=== PATIENT | female | born 1945 | race Caucasian/White ===

== ENCOUNTER → 2018-01-16 | Outpatient (CLI) | payer MEDICARE, BC ==
--- NOTE | 2018-01-16 13:53 | Diagnostic Imaging Report ---
EXAM: XR CHEST 2 VIEWS DATE: 01/16/2018 12:38 PM INDICATION: Cough COMPARISON: None FINDINGS: Lines and Tubes: None Heart and Mediastinum: No acute cardiomediastinal findings. Lungs and Pleura: Ill-defined basilar opacities, most notably on the left. Bones and Soft Tissues: No acute findings. IMPRESSION: 1. Left basilar atelectasis versus developing pneumonia. Signed by: Dr. Matt Bonner MD on 01/16/2018 1:49 PM
== END ==
LOC: RAD 12:26
PROVIDERS: ATTEND Family Medicine
DX: R05 Cough (principal)
CPT/HCPCS: 71046

== ENCOUNTER → 2018-02-19 | Outpatient (CLI) | payer MEDICARE, BC ==
--- NOTE | 2018-02-19 12:39 | Diagnostic Imaging Report ---
EXAMINATION: PA and lateral views of the chest. COMPARISON: 01/16/2018 CLINICAL HISTORY: Resolving bronchitis DISCUSSION: Lungs are well-inflated. Aeration of the left lung base has improved compared to 01/16/2018. No consolidation, pleural effusion, or pneumothorax. Stable cardiomediastinal contour. No acute osseous abnormality. IMPRESSION: No acute cardiopulmonary abnormality. Improved aeration of the left lung base relative to 01/16/2018. Signed by: Dr. Sebas Parson M.D. on 02/19/2018 12:35 PM
== END ==
LOC: RAD 11:47
PROVIDERS: ATTEND Family Medicine
DX: J40 Bronchitis, not specified as acute or chronic (principal)
CPT/HCPCS: 71046

== ENCOUNTER → 2019-05-18 | Outpatient (CLI) | payer MEDICARE, BC ==
--- NOTE | 2019-05-18 13:30 | Diagnostic Imaging Report ---
TECHNIQUE: 3 views of left knee HISTORY: ^LT KNEE PAIN. COMPARISON: None. IMPRESSION: No acute displaced fracture or dislocation. Joint spaces are within normal limits. Soft tissues are grossly unremarkable. Signed by: Wilfrido Brito MD on 05/18/2019 1:26 PM
== END ==
LOC: RAD 12:34
PROVIDERS: ATTEND Family Medicine
DX: M25.562 Pain in left knee (principal)

== ENCOUNTER → 2020-04-07 | Outpatient (CLI) | payer MEDICARE, BC | LOC: US 10:51 | PROVIDERS: ATTEND Family Medicine | DX: E04.9 Nontoxic goiter, unspecified (principal) | CPT/HCPCS: 76536 ==

== ENCOUNTER → 2022-12-17 | Outpatient (REF) | payer MEDICARE, BC | LOC: RAD 10:59 | PROVIDERS: ATTEND Family Medicine | DX: J40 Bronchitis, not specified as acute or chronic (principal) | CPT/HCPCS: 71046 ==

== ENCOUNTER → 2023-12-11 | Day surgery (SDC) | payer BC, MEDICARE ==
[2023-12-08 11:29] LABS: BASOPHILS # (AUTO) 0.1 (0.0-0.1); BASOPHILS % 1.4 % (0.0-1.0); EOSINOPHILS # (AUTO) 0.1 (0.0-0.4); EOSINOPHILS % 2.9 % (0.0-6.0); HEMATOCRIT 41.1 % (34.2-44.1); HEMOGLOBIN 13.6 g/dL (12.0-16.0); LYMPHOCYTES # (AUTO) 1.5 (1.0-3.2); LYMPHOCYTES % 43.9 % (18.0-39.1); MEAN CORPUSCULAR HEMOGLOBIN 32.2 pg (28-32); MEAN CORPUSCULAR HGB CONC 33.1 g/dL (31-35); MEAN CORPUSCULAR VOLUME 97.2 fL (81-99); MONOCYTES # (AUTO) 0.2 (0.2-0.8); MONOCYTES % 6.4 % (4.4-11.3); NEUTROPHILS # (AUTO) 1.6 (2.1-6.9); NEUTROPHILS % 45.4 % (38.7-80.0); PLATELET COUNT 176 x10e3/uL (140-360); RED BLOOD COUNT 4.23 x10e6/uL (3.6-5.1); RED CELL DISTRIBUTION WIDTH 12.3 % (11.7-14.4); WHITE BLOOD COUNT 3.46 x10e3/uL (4.8-10.8)
[2023-12-08 11:50] LABS: ANION GAP 15.3 mmol/L (8-16); CALCIUM 10.2 mg/dL (8.4-10.2); CREATININE, SERUM 0.86 mg/dL (0.57-1.11); POTASSIUM 4.3 mmol/L (3.5-5.1)
[~2023-12-11] MED LIST: ACETAMINOPHEN 1000 MG/100 ML IV ONE; ACETAMINOPHEN-1 EAC4 PO; ASPIRIN81 MG PO; BUPIVACAINE 0.5%/EPI 30 ML SDV INJ ONE; BUPIVACAINE HCL 0.5% INJ 30 ML VIAL INJ ONE; CALCIUM PO; CELEBREX200 MG PO; DEXAMETHASONE SOD PHOS INJ 4 MG/ML SDV ONE; EPHEDRINE SULFATE INJ 50 MG/ML VIAL ONE; FENTANYL CITRATE/PF 100MCG/2 ML INJ ONE; LIDOCAINE HCL 2% LOCAL INJ 5 ML SDV VIAL INJ ONE; LOSARTAN POTASS25 MG PO; MUPIROCIN 2% OINT 22 GM TUBE ONE; ONDANSETRON HCL INJ 2MG/ML 2ML 2 MG/ML VIAL ONE; PROPOFOL IV EMULSION 10 MG/ML 20 ML VIAL ONE; SEVOFLURANE INHAL SOLN 250 ML PEN BTL ONE; TRIAMTERENE-HCTZ1 EA PO; TYLENOL325 MG PO; VITAMIN B-121000 MC1 PO; VITAMIN C1000 MG PO; VITAMIN D31250 MCG PO
[2023-12-11] MEDS: LACTATED RINGER'S 1,000 ML ONE (05:44)
[2023-12-11 08:50] VITALS: BP 156/86; PULSE 76; RESP 18; O2SAT 96
== END | disposition home or self-care (01) ==
LOC: OR 05:09 → EDSTATUS 07:00
PROVIDERS: ATTEND Plastic Surgery
DX: M65.332 Trigger finger, left middle finger (principal); M65.341 Trigger finger, right ring finger; I10 Essential (primary) hypertension; E78.5 Hyperlipidemia, unspecified; Z01.812 Encounter for preprocedural laboratory examination; Z01.818 Encounter for other preprocedural examination; Z79.899 Other long term (current) drug therapy
CPT/HCPCS: 26055 ×2; 36415; 71046; 80048; 85025; 93005; J0690; J3010; J7121; J1100; J2003; J2405